=== PATIENT | female | born 1955 | race American Indian/Alaskan Native ===

== ENCOUNTER 2016-09-20 17:57 | Emergency (ER) | payer OTHER ==
[2016-09-20 21:19] LABS: Basophils % (Auto) 0.4 % (0.0-1.8); Eosinophils % (Auto) 1.5 % (0.0-4.3); Hematocrit 37.3 % (30.3-42.9); Mean Corpuscular HGB Conc 32 % (30-34); Mean Corpuscular Volume 78 fl (79-97); Platelet Count 233 K/mm3 (140-440); Red Blood Count 4.78 M/mm3 (3.65-5.03); Red Cell Distribution Width 14.1 % (13.2-15.2); White Blood Count 6.8 K/mm3 (4.5-11.0)
[2016-09-20 21:25] LABS: Mean Corpuscular Hemoglobin 25 pg (28-32)
[2016-09-20 21:32] LABS: Anion Gap 19 mmol/L; Blood Urea Nitrogen 20 mg/dL (7-17); Calcium 9.1 mg/dL (8.4-10.2); Carbon Dioxide 25 mmol/L (22-30); Glucose 205 mg/dL (65-100); Potassium 4.3 mmol/L (3.6-5.0); Sodium 141 mmol/L (137-145)
[2016-09-20 22:18] VITALS: BP 161/93
--- NOTE | 2016-09-20 23:58 | Emergency Department Report ---
ED Chest Pain HPI - General Chief Complaint: Chest Pain Stated Complaint: CHEST PAIN Time Seen by Provider: 09/20/16 19:19 Source: patient Mode of arrival: Stretcher Limitations: No Limitations - History of Present Illness Initial Comments: 61-year-old female presents to the emergency department via EMS complaining of chest pain. Patient states that at approximately 7:30 AM this morning she began having chest pain. Patient describes a squeezing sensation around her heart that lasted only for a couple of seconds for resolving. She states his pain is recurring every 15-20 minutes. She states that the intensity is increasing and the pain has begun to radiate to her left jaw and left arm. She denies associated dizziness, diaphoresis, shortness of breath, nausea, or vomiting. She does report that for the past week she has been feeling fatigued. At this time, the patient reports the pain has resolved. There are no other complaints. MD Complaint: chest pain -: Gradual, This morning Time: 07:30 Onset: during rest Pain Location: substernal Pain Radiation: LUE, jaw/teeth Severity: severe Severity scale (0 -10): 8 Quality: squeezing Consistency: intermittent, now resolved Improves With: nothing Worsens With: nothing re: denies: nausea, vomting, diaphoresis, dyspnea Treatments Prior to Arrival: none Aspirin use within the Past 7 Days: (0) No - Related Data Home Medications Medication Instructions Recorded Confirmed Last Taken Carvedilol [Coreg] 12.5 mg PO BID 05/10/15 05/10/15 Unknown Previous Rx's Medication Instructions Recorded Last Taken Type ALBUTEROL Inhaler [ProAir HFA 2 puff IH Q4H PRN #1 pump 03/05/15 Unknown Rx Inhaler] Aspirin EC [Aspirin Enteric Coated 81 mg PO QDAY #30 tablet. 03/05/15 Rx TAB] Lisinopril [Zestril TAB] 40 mg PO QDAY #30 tablet 03/05/15 05/10/15 Rx glipiZIDE [glipiZIDE ER] 5 mg PO QAM #30 tab.er.24 03/05/15 05/10/15 Rx Furosemide [Lasix] 20 mg PO BID #60 tablet 04/08/15 05/10/15 Rx Simvastatin [Zocor TAB] 20 mg PO QHS #30 tablet 04/08/15 05/10/15 Rx Hydralazine HCl [Apresoline TAB] 50 mg PO Q12H #60 tablet 05/11/15 Unknown Rx HYDROcodone/APAP 5-325 [[place] 1 each PO Q6HR PRN #15 tablet 07/27/16 Unknown Rx 5-325 mg TAB] Loperamide [Imodium] 2 mg PO Q2HR PRN #20 capsule 07/27/16 Unknown Rx Ondansetron [Zofran Odt] 4 mg PO Q8HR PRN #20 tab.rapdis 07/27/16 Unknown Rx Allergies Allergy/AdvReac Type Severity Reaction Status Date / Time latex Allergy Rash Verified 04/07/15 11:55 penicillin Allergy Unknown Verified 03/04/15 05:40 YENNI score - Yenni Score Age > 65: (0) No Aspirin use within the Past 7 Days: (0) No 3 or more CAD Risk Factors: (1) Yes 2 or more Angina events in past 24 hrs: (0) No Known CAD with more than 50% Stenosis: (0) No Elevated Cardiac Markers: (0) No ST Deviation Greater than 0.5mm: (0) No YENNI Score: 1 ED Review of Systems ROS: Stated complaint: CHEST PAIN Other details as noted in HPI Comment: All other systems reviewed and negative Cardiovascular: chest pain ED Past Medical Hx - Past Medical History Previous Medical History?: Yes Hx Hypertension: Yes Hx Congestive Heart Failure: Yes Hx Diabetes: Yes (Type II) Hx Asthma: Yes Hx COPD: Yes - Surgical History Past Surgical History?: Yes Additional Surgical History: D & C - Family History Family history: no significant - Social History Smoking Status: Never Smoker Substance Use Type: None - Medications Home Medications: Home Medications Medication Instructions Recorded Confirmed Last Taken Type ALBUTEROL Inhaler [ProAir HFA 2 puff IH Q4H PRN #1 pump 03/05/15 05/10/15 Unknown Rx Inhaler] Aspirin EC [Aspirin Enteric Coated 81 mg PO QDAY #30 tablet. 03/05/1505/10/15 Rx TAB] Lisinopril [Zestril TAB] 40 mg PO QDAY #30 tablet 03/05/15 05/10/15 05/10/15 Rx glipiZIDE [glipiZIDE ER] 5 mg PO QAM #30 tab.er.24 03/05/15 05/10/15 05/10/15 Rx Furosemide [Lasix] 20 mg PO BID #60 tablet 04/08/15 05/10/15 05/10/15 Rx Simvastatin [Zocor TAB] 20 mg PO QHS #30 tablet 04/08/15 05/10/15 05/10/15 Rx Carvedilol [Coreg] 12.5 mg PO BID 05/10/15 05/10/15 Unknown History Hydralazine HCl [Apresoline TAB] 50 mg PO Q12H #60 tablet 05/11/15 Unknown Rx HYDROcodone/APAP 5-325 [[place] 1 each PO Q6HR PRN #15 tablet 07/27/16 Unknown Rx 5-325 mg TAB] Loperamide [Imodium] 2 mg PO Q2HR PRN #20 capsule 07/27/16 Unknown Rx Ondansetron [Zofran Odt] 4 mg PO Q8HR PRN #20 tab.rapdis 07/27/16 Unknown Rx ED Physical Exam - General Limitations: No Limitations General appearance: alert, in no apparent distress - Head Head exam: Present: atraumatic, normocephalic - Eye Eye exam: Present: normal appearance, PERRL, EOMI - ENT ENT exam: Present: normal exam, normal orophraynx, mucous membranes moist - Neck Neck exam: Present: normal inspection, full ROM. Absent: tenderness - Respiratory Respiratory exam: Present: normal lung sounds bilaterally. Absent: respiratory distress - Cardiovascular Cardiovascular Exam: Present: regular rate, normal rhythm, normal heart sounds - GI/Abdominal GI/Abdominal exam: Present: soft, normal bowel sounds. Absent: distended, tenderness - Extremities Exam Extremities exam: Present: normal inspection, full ROM. Absent: tenderness - Back Exam Back exam: Present: normal inspection, full ROM. Absent: tenderness - Neurological Exam Neurological exam: Present: alert, oriented X3. Absent: motor sensory deficit - Skin Skin exam: Present: warm, dry, intact ED Course Vital Signs 09/20/16 09/20/16 09/20/16 18:16 18:22 18:30 Temperature Pulse Rate 68 69 Respiratory 14 16 20 Rate Blood Pressure 176/79 197/91 O2 Sat by Pulse 99 Oximetry 09/20/16 09/20/16 09/20/16 18:31 18:40 18:50 Temperature Pulse Rate 78 80 68 Respiratory 11 L 15 Rate Blood Pressure 197/91 179/89 O2 Sat by Pulse 98 99 Oximetry 09/20/16 09/20/16 09/20/16 18:54 19:00 19:05 Temperature 98.0 F Pulse Rate 73 63 Respiratory 18 17 18 Rate Blood Pressure 197/91 154/71 O2 Sat by Pulse 98 98 97 Oximetry 09/20/16 09/20/16 09/20/16 19:10 19:43 19:50 Temperature Pulse Rate 62 72 Respiratory 17 13 Rate Blood Pressure 154/71 154/71 167/78 O2 Sat by Pulse 99 99 Oximetry 09/20/16 09/20/16 09/20/16 20:01 20:11 20:20 Temperature Pulse Rate 63 61 Respiratory 26 H 18 27 H Rate Blood Pressure 161/65 167/78 167/78 O2 Sat by Pulse 99 99 98 Oximetry 09/20/16 09/20/16 09/20/16 20:30 20:41 20:51 Temperature Pulse Rate 59 L 61 61 Respiratory 19 21 15 Rate Blood Pressure 173/87 173/87 162/84 O2 Sat by Pulse 100 100 97 Oximetry 09/20/16 09/20/16 09/20/16 21:00 21:11 21:21 Temperature Pulse Rate 65 72 68 Respiratory 16 14 13 Rate Blood Pressure 159/95 159/95 151/95 O2 Sat by Pulse 97 98 98 Oximetry 09/20/16 09/20/16 09/20/16 21:30 21:41 21:51 Temperature Pulse Rate 59 L 69 70 Respiratory 16 11 L 11 L Rate Blood Pressure 169/86 169/86 155/80 O2 Sat by Pulse 98 98 99 Oximetry 09/20/16 09/20/16 22:00 22:11 Temperature Pulse Rate 63 66 Respiratory 12 14 Rate Blood Pressure 161/93 161/93 O2 Sat by Pulse 99 97 Oximetry ED Medical Decision Making - Lab Data Result diagrams: 09/20/16 20:16 09/20/16 20:16 - EKG Data -: EKG Interpreted by Me EKG shows normal: sinus rhythm, axis, intervals, QRS complexes, ST-T waves Rate: normal - EKG Data When compared to previous EKG there are: previous EKG unavailable Interpretation: normal EKG - Medical Decision Making Laboratory results reviewed and discussed with the patient. I have spoken with Dr. Colby, cardiology. Patient's symptoms are atypical and he states that the patient has a second negative troponin she may be discharged home. Patient has had a nonischemic ECG and 2 negative troponins. Patient will be discharged home at this time to follow up with her vegetable preparer as an outpatient. - Differential Diagnosis atypical chest pain, ACS Critical care attestation.: If time is entered above; I have spent that time in minutes in the direct care of this critically ill patient, excluding procedure time. ED Disposition Clinical Impression: Non-cardiac chest pain Disposition: DISCHARGED TO HOME OR SELFCARE Is pt being admited?: No Condition: Stable Instructions: Chest Pain (ED) Referrals: PRIMARY CARE, [Primary Care Provider] - 3-5 Days Time of Disposition: 23:58
--- NOTE | 2016-09-21 10:01 | XRay Report ---
AP CHEST: HISTORY: chest pain AP view of the chest demonstrates a normal mediastinal and cardiac contour with clear lungs and normal bony and soft tissue structures. IMPRESSION: Unremarkable AP chest.
== END 2016-09-21 00:04 | disposition home or self-care (01) ==
LOC: ED 17:57
DX: R07.89 Other chest pain (principal); I10 Essential (primary) hypertension; I50.9 Heart failure, unspecified; E11.9 Type 2 diabetes mellitus without complications; J44.9 Chronic obstructive pulmonary disease, unspecified; J45.909 Unspecified asthma, uncomplicated; Z88.0 Allergy status to penicillin; Z91.040 Latex allergy status
CPT/HCPCS: 36415; 71010; 80048; 83880; 84484; 85025; 93005; 93010; 99285

== ENCOUNTER 2016-12-12 06:10 | Day surgery (SDC) | payer OTHER ==
[2016-12-12] MEDS ORDERED: WATER FOR IRRIG STERILE IR ONE (07:03)
[2016-12-12] MEDS ORDERED: WATER FOR IRRIG STERILE ONE (07:04)
--- NOTE | 2016-12-12 07:32 | Anesthesia Consultation ---
Anesthesia Consult and Med Hx Date of service: 12/12/16 - Airway Anesthetic Teeth Evaluation: Good ROM Head & Neck: Adequate Mental/Hyoid Distance: Adequate Mallampati Class: Class II Intubation Access Assessment: Probably Good - Pulmonary Exam CTA: Yes - Cardiac Exam Cardiac Exam: RRR - Pre-Operative Health Status ASA Pre-Surgery Classification: ASA4 Proposed Anesthetic Plan: MAC - Pulmonary Hx Asthma: Yes COPD: Yes - Cardiovascular System Hx Hypertension: Yes - Gastrointestinal Hx Gastroesophageal Reflux Disease: Yes - Endocrine Hx Insulin Dependent Diabetes: Yes - Other Systems Hx Cancer: No - Additional Comments Anesthesia Medical History Comments: CHF, EF= 46%
--- NOTE | 2016-12-12 07:36 | Anesthesia Day of Surgery ---
Anesthesia Day of Surgery - Day of Surgery Patient Examined: Yes Patient H&P Reviewed: Yes Patient is NPO: Yes
[2016-12-12] MEDS ORDERED: DIPRIVAN 10 MG/ML IV ONE ×3 (07:37→07:38)
[2016-12-12] MEDS ORDERED: XYLOCAINE 1% 20 mL ONE (07:39)
[2016-12-12] MEDS ORDERED: XYLOCAINE 2% INFILTRATI ONE (07:40)
[2016-12-12] MEDS ORDERED: XYLOCAINE MPF 2% ONE (07:41)
[2016-12-12] MEDS ORDERED: NACL 0.9% 1000 ML 1,000 ML IV SCH (08:00)
[2016-12-12] MEDS ORDERED: NORMODYNE IV ONE (08:07)
--- NOTE | 2016-12-12 08:07 | Short Stay Summary ---
Short Stay Documentation - Allergies and Medications Current Medications: Allergies latex Allergy (Verified 04/07/15 11:55) Rash penicillin Allergy (Verified 03/04/15 05:40) Unknown Home Medications Medication Instructions Recorded Confirmed Last Taken Type ALBUTEROL Inhaler [ProAir HFA 2 puff IH Q4H PRN #1 pump 03/05/15 12/12/16 Unknown Rx Inhaler] Aspirin EC [Aspirin Enteric Coated 81 mg PO QDAY #30 tablet. 03/05/1512/11/16 Rx TAB] Carvedilol [Coreg] 12.5 mg PO BID 05/10/15 12/12/16 12/11/16 History HYDROcodone/APAP 5-325 [[place] 1 each PO Q6HR PRN #15 tablet 07/27/16 12/12/16 Rx 5-325 mg TAB] Loperamide [Imodium] 2 mg PO Q2HR PRN #20 capsule 07/27/16 12/12/16 Unknown Rx Ondansetron [Zofran ODT TAB] 4 mg PO Q8HR PRN #20 tab.rapdis 07/27/16 12/12/16 10/01/16 Rx Canagliflozin [Invokana] 300 mg PO QDAY 11/23/16 12/12/16 12/11/16 History Furosemide [Lasix TAB] 40 mg PO QDAY 11/23/16 12/12/16 12/11/16 History Gabapentin [Neurontin] 400 mg PO QDAY PRN 11/23/16 12/12/16 Unknown History Hydralazine HCl [Apresoline TAB] 50 mg PO TID 11/23/16 12/12/16 12/12/16 History Lisinopril [Zestril TAB] 40 mg PO QDAY 11/23/16 12/12/16 11/22/16 History Loratadine [Allergy Relief] 10 mg PO QDAY 11/23/16 12/12/16 Unknown History Simvastatin [Zocor TAB] 20 mg PO QHS 11/23/16 12/12/16 12/11/16 History amLODIPine [Norvasc] 5 mg PO DAILY 11/23/16 12/12/16 12/11/16 History glipiZIDE [glipiZIDE ER] 10 mg PO Q12HR 11/23/16 12/12/16 12/12/16 History Azithromycin [Zithromax TAB] 250 mg PO QDAY #4 tablet 11/24/16 12/12/16 Unknown Rx Fluticasone [Flonase] 1 spray NS QDAY #1 bottle 11/24/16 12/12/16 12/11/16 Rx Active Medications Sodium Chloride (Nacl 0.9% 1000 Ml) 1,000 mls @ 50 mls/hr IV DIRECT SHALA Last Admin: 12/12/16 07:41 Dose: 50 mls/hr - Brief post op/procedure progress note Date of procedure: 12/12/16 Pre-op diagnosis: 1. Colon cancer screening 2. H/o rectal prolapse Post-op diagnosis: same (1. Diverticulosis coli 2. Internal hemorrhoids) Procedure: Colonoscopy Anesthesia: MAC Findings: as above Surgeon: GERMANIA MARCUS Estimated blood loss: none Pathology: none Condition: stable - Disposition Condition at discharge: Stable Disposition: DISCHARGED TO HOME OR SELFCARE Short Stay Discharge Plan Activity: no restrictions Weight Bearing Status: Full Weight Bearing Diet: regular, low salt, diabetic Follow up with: ELE BAUTISTA III, [facility] [Primary Care Provider] - 7 Days
[2016-12-12 08:37] VITALS: BP 141/73
--- NOTE | 2016-12-12 08:47 | Post Anesthesia Evaluation ---
- Post Anesthesia Evaluation Patient Participated: Yes Airway Patent: Yes Stable Respiratory Function: Yes Nausea/Vomiting: No Temp > 96.8F: Yes Pain Manageable: Yes Adequeate Hydration: Yes Anesthesia Complications: No Block Receding Appropriately: Not Applicable Patient on Ventilator: No
== END 2016-12-12 06:11 | disposition home or self-care (01) ==
LOC: GIO 06:10
PROVIDERS: ATTEND Internal Medicine Gastroenterology
DX: Z12.11 Encounter for screening for malignant neoplasm of colon (principal); K64.0 First degree hemorrhoids; K57.30 Diverticulosis of large intestine without perforation or abscess without bleeding; K21.9 Gastro-esophageal reflux disease without esophagitis; J44.9 Chronic obstructive pulmonary disease, unspecified; J45.909 Unspecified asthma, uncomplicated; F32.9 Major depressive disorder, single episode, unspecified; E11.9 Type 2 diabetes mellitus without complications; I11.0 Hypertensive heart disease with heart failure; I50.9 Heart failure, unspecified; E78.00 Pure hypercholesterolemia, unspecified; Z88.0 Allergy status to penicillin; Z91.040 Latex allergy status; Z79.899 Other long term (current) drug therapy
CPT/HCPCS: 82962; G0121; J2704; J7030

== ENCOUNTER 2017-01-30 02:20 | Emergency (ER) | payer OTHER ==
[2017-01-30 02:43] VITALS: BP 184/111
[2017-01-30 03:19] LABS: Basophils % (Auto) 0.5 % (0.0-1.8); Eosinophils % (Auto) 2.5 % (0.0-4.3); Hematocrit 36.4 % (30.3-42.9); Hemoglobin 11.8 gm/dl (10.1-14.3); Mean Corpuscular HGB Conc 32 % (30-34); Mean Corpuscular Volume 78 fl (79-97); Platelet Count 238 K/mm3 (140-440); Red Blood Count 4.66 M/mm3 (3.65-5.03); Red Cell Distribution Width 14.2 % (13.2-15.2); White Blood Count 6.7 K/mm3 (4.5-11.0)
[2017-01-30 03:24] LABS: Mean Corpuscular Hemoglobin 25 pg (28-32)
[2017-01-30 03:40] LABS: Anion Gap 17 mmol/L; BUN/Creatinine Ratio 26.66; Blood Urea Nitrogen 24 mg/dL (7-17); Calcium 9.2 mg/dL (8.4-10.2); Carbon Dioxide 25 mmol/L (22-30); Chloride 99.1 mmol/L (98-107); Glucose 233 mg/dL (65-100); Potassium 4.1 mmol/L (3.6-5.0); Sodium 137 mmol/L (137-145)
--- NOTE | 2017-02-01 19:57 | ED Elopement Review ---
ED Pt Elopement review - Results review Lab results: Laboratory Tests 01/30/17 01/30/17 02:47 02:47 WBC 6.7 RBC 4.66 Hgb 11.8 Hct 36.4 MCV 78 L MCH 25 L MCHC 32 RDW 14.2 Plt Count 238 Lymph % (Auto) 34.5 [place] % (Auto) 7.8 H Eos % (Auto) 2.5 Baso % (Auto) 0.5 Lymph # 2.3 [place] # 0.5 Eos # 0.2 Baso # 0.0 Seg Neutrophils % 54.7 Seg Neutrophils # 3.7 Sodium 137 Potassium 4.1 Chloride 99.1 Carbon Dioxide 25 Anion Gap 17 BUN 24 H Creatinine 0.9 Estimated GFR > 60 BUN/Creatinine Ratio 26.66 Glucose 233 H Calcium 9.2 Troponin T < 0.010 - Call Back decision Pt Call Back Decision: No action required
== END 2017-01-30 05:06 | disposition left against medical advice (07) ==
LOC: ED 02:20
DX: M79.602 Pain in left arm (principal); Z53.21 Procedure and treatment not carried out due to patient leaving prior to being seen by health care provider
CPT/HCPCS: 36415; 80048; 84484; 85025; 93005; 93010

== ENCOUNTER 2017-09-01 10:57 | Emergency (ER) | payer OTHER ==
[2017-09-01 13:31] LABS: Basophils # (Auto) 0.1 K/mm3 (0.0-0.1); Basophils % (Auto) 0.9 % (0.0-1.8); Eosinophils # (Auto) 0.1 K/mm3 (0.0-0.4); Eosinophils % (Auto) 1.1 % (0.0-4.3); Hematocrit 41.1 % (30.3-42.9); Hemoglobin 13.2 gm/dl (10.1-14.3); Lymphocytes # (Auto) 2.3 K/mm3 (1.2-5.4); Lymphocytes % (Auto) 31.8 % (13.4-35.0); Mean Corpuscular HGB Conc 32 % (30-34); Mean Corpuscular Volume 80 fl (79-97); Monocytes # (Auto) 0.5 K/mm3 (0.0-0.8); Monocytes % (Auto) 6.6 % (0.0-7.3); Platelet Count 243 K/mm3 (140-440); Red Blood Count 5.15 M/mm3 (3.65-5.03); Red Cell Distribution Width 14.2 % (13.2-15.2)
[2017-09-01 13:33] LABS: Mean Corpuscular Hemoglobin 26 pg (28-32)
[2017-09-01 13:47] LABS: BUN/Creatinine Ratio 19; Blood Urea Nitrogen 15 mg/dL (7-17); Calcium 9.3 mg/dL (8.4-10.2); Hemolysis Index 12
[2017-09-01 15:49] LABS: Bilirubin,Urine NEG (Negative); Blood,Urine NEG (Negative); Color,Urine Yellow (Yellow); Mucus,Urine FEW /HPF; Nitrite,Urine NEG (Negative); Protein,Urine <15 mg/dL mg/dL (Negative); RBC,Urine < 1.0 /HPF (0.0-6.0); Urobilinogen,Urine < 2.0 mg/dL (<2.0)
--- NOTE | 2017-09-01 20:42 | Emergency Department Report ---
HPI - General Chief Complaint: Weakness Time Seen by Provider: 09/01/17 20:23 - HPI HPI: Room 22 The patient is a 62-year-old female presented with a chief complaint of feeling "sick." The patient states for the past 3 days she has felt "sick" when asked what this means the patient lives she feels "lethargic" with occasional shortness of breath. Patient states she's had a decreased appetite for the past 1.5 weeks. The patient states 5 days ago she had intermittent chest pain. Patient does admit to nausea but denies vomiting. Patient denies fever or rhinorrhea. The patient states while in the ED she had left flank pain while urinating. The patient states she had a cardiac catheterization in 2014 Location: [See above] Duration: [See above] Quality: [See above] Severity: [See above] Modifying factors: [see above] Context: [see above] Mode of transportation: [not driving] ED Past Medical Hx - Past Medical History Previous Medical History?: Yes Hx Hypertension: Yes Hx Congestive Heart Failure: Yes Hx Diabetes: Yes Hx GERD: Yes Hx Asthma: Yes Hx COPD: Yes - Surgical History Past Surgical History?: Yes Additional Surgical History: D & C - Family History Family history: no significant - Social History Smoking Status: Never Smoker Substance Use Type: None (denies illicit drug use) - Medications Home Medications: Home Medications Medication Instructions Recorded Confirmed Last Taken Type ALBUTEROL Inhaler [ProAir HFA 2 puff IH Q4H PRN #1 pump 03/05/15 12/12/16 Unknown Rx Inhaler] Aspirin EC [Aspirin Enteric Coated 81 mg PO QDAY #30 tablet. 03/05/1512/11/16 Rx TAB] Carvedilol [Coreg] 12.5 mg PO BID 05/10/15 12/12/16 12/11/16 History HYDROcodone/APAP 5-325 [[place] 1 each PO Q6HR PRN #15 tablet 07/27/16 12/12/16 Rx 5-325 mg TAB] Loperamide [Imodium] 2 mg PO Q2HR PRN #20 capsule 07/27/16 12/12/16 Unknown Rx Ondansetron [Zofran ODT TAB] 4 mg PO Q8HR PRN #20 tab.rapdis 1212/12/16 10/01/16 Rx Canagliflozin [Invokana] 300 mg PO QDAY 11/23/16 12/12/16 12/11/16 History Furosemide [Lasix TAB] 40 mg PO QDAY 11/23/16 12/12/16 12/11/16 History Gabapentin [Neurontin] 400 mg PO QDAY PRN 11/23/16 12/12/16 Unknown History Hydralazine HCl [Apresoline TAB] 50 mg PO TID 11/23/16 12/12/16 12/12/16 History Lisinopril [Zestril TAB] 40 mg PO QDAY 11/23/16 12/12/16 11/22/16 History Loratadine [Allergy Relief] 10 mg PO QDAY 11/23/16 12/12/16 Unknown History Simvastatin [Zocor TAB] 20 mg PO QHS 11/23/16 12/12/16 12/11/16 History amLODIPine [Norvasc] 5 mg PO DAILY 11/23/16 12/12/16 12/11/16 History glipiZIDE [glipiZIDE ER] 10 mg PO Q12HR 11/23/16 12/12/16 12/12/16 History Azithromycin [Zithromax TAB] 250 mg PO QDAY #4 tablet 11/24/16 12/12/16 Unknown Rx Fluticasone [Flonase] 1 spray NS QDAY #1 bottle 11/24/16 12/12/16 12/11/16 Rx Azithromycin [Zithromax Z-MARTA] 0 mg PO DAILY #6 tab 09/02/17 Unknown Rx HYDROcodone/APAP 5-325 [[place] 1 - 2 each PO Q6HR PRN #10 tablet 09/02/17 Unknown Rx 5/325] Meclizine [Antivert] 25 mg PO TID PRN #20 tablet 09/02/17 Unknown Rx ED Review of Systems ROS: Stated complaint: WEAKNESS/HYPERTENSIVE Other details as noted in HPI Constitutional: diaphoresis, weakness. denies: fever Respiratory: cough, shortness of breath Cardiovascular: chest pain Gastrointestinal: nausea. denies: vomiting Musculoskeletal: back pain Neurological: other (dizziness) Physical Exam - Physical Exam Vital Signs: Vital Signs 09/01/17 12:33 Temperature 98.3 F Pulse Rate 73 Respiratory 16 Rate Blood Pressure 178/92 O2 Sat by Pulse 98 Oximetry Physical Exam: GENERAL: The patient is well-developed well-nourished female lying on stretcher not appearing to be in acute distress. [] HEENT: Normocephalic. Atraumatic. Extraocular motions are intact. Patient has moist mucous membranes. NECK: Supple. No meningitic signs are noted. Trachea midline CHEST/LUNGS: Clear to auscultation. There is no respiratory distress noted. HEART/CARDIOVASCULAR: Regular. There is no tachycardia. There is no gallop rub or murmur. ABDOMEN: Abdomen is soft, with mild left upper quadrant discomfort to palpation. There is no rebound or guarding. Patient has normal bowel sounds. There is no abdominal distention. SKIN: There is no rash. There is no edema. There is no diaphoresis. NEURO: The patient is awake, alert, and oriented. The patient is cooperative. The patient has no focal neurologic deficits. The patient has normal speech. Cranial nerves II through XII grossly intact, no drift MUSCULOSKELETAL: There is mild left CVA tenderness. There is no evidence of acute injury. ED Course Vital Signs 09/01/17 12:33 Temperature 98.3 F Pulse Rate 73 Respiratory 16 Rate Blood Pressure 178/92 O2 Sat by Pulse 98 Oximetry ED Medical Decision Making - Lab Data Result diagrams: 09/01/17 13:03 09/01/17 13:03 Laboratory Tests 09/01/17 09/01/17 09/01/17 13:03 13:03 14:42 WBC 7.2 RBC 5.15 H Hgb 13.2 Hct 41.1 MCV 80 MCH 26 L MCHC 32 RDW 14.2 Plt Count 243 Lymph % (Auto) 31.8 [place] % (Auto) 6.6 Eos % (Auto) 1.1 Baso % (Auto) 0.9 Lymph # 2.3 [place] # 0.5 Eos # 0.1 Baso # 0.1 Seg Neutrophils % 59.6 Seg Neutrophils # 4.3 D-Dimer Sodium 138 Potassium 4.5 Chloride 98.7 Carbon Dioxide 23 Anion Gap 21 BUN 15 Creatinine 0.8 Estimated GFR > 60 BUN/Creatinine Ratio 19 Glucose 136 H Calcium 9.3 Total Creatine Kinase CK-MB (CK-2) CK-MB (CK-2) Rel Index Troponin T TSH Free T4 Urine Color Yellow Urine Turbidity Clear Urine pH 6.0 Ur Specific [place] 1.027 Urine Protein <15 mg/dl Urine Glucose (UA) >=500 Urine Ketones 20 Urine Blood Neg Urine Nitrite Neg Urine Bilirubin Neg Urine Urobilinogen < 2.0 Ur Leukocyte Esterase Neg Urine WBC (Auto) 2.0 Urine RBC (Auto) < 1.0 U Epithel Cells (Auto) 4.0 Urine Mucus Few 09/01/17 09/01/17 09/01/17 20:44 20:44 20:44 WBC RBC Hgb Hct MCV MCH MCHC RDW Plt Count Lymph % (Auto) [place] % (Auto) Eos % (Auto) Baso % (Auto) Lymph # [place] # Eos # Baso # Seg Neutrophils % Seg Neutrophils # D-Dimer 341.64 H Sodium Potassium Chloride Carbon Dioxide Anion Gap BUN Creatinine Estimated GFR BUN/Creatinine Ratio Glucose Calcium Total Creatine Kinase 101 CK-MB (CK-2) 1.3 CK-MB (CK-2) Rel Index 1.2 Troponin T < 0.010 TSH 1.750 Free T4 1.21 Urine Color Urine Turbidity Urine pH Ur Specific [place] Urine Protein Urine Glucose (UA) Urine Ketones Urine Blood Urine Nitrite Urine Bilirubin Urine Urobilinogen Ur Leukocyte Esterase Urine WBC (Auto) Urine RBC (Auto) U Epithel Cells (Auto) Urine Mucus - EKG Data -: EKG Interpreted by Ks EKG shows normal: sinus rhythm Rate: normal - EKG Data When compared to previous EKG there are: previous EKG unavailable Interpretation: other (no ischemic changes seen) - Radiology Data Radiology results: report reviewed (CT head, CT chest, CT abdomen and pelvis), image reviewed (CT head, CT chest, CT abdomen and pelvis) FINAL REPORT EXAM: CT ANGIO CHEST HISTORY: chest pain, shortness of breath COMPARISON: None available. TECHNIQUE: Contiguous axial images were obtained. Additional sagittal and coronal reformatted images were obtained. Administration of IV contrast given per institution protocol. Images submitted for interpretation. 100 cc Omnipaque 350. Max intensity projection images. FINDINGS: Heart mildly enlarged. Thoracic aorta normal in caliber. No dissection. No pulmonary embolus. No pathologically enlarged intrathoracic or axillary lymph nodes. Mild linear and subsegmental atelectasis at the lung bases. No dense consolidation or effusion. Minimal scarring at the lung apices. 7 x 6 millimeter hypodense left thyroid lobe nodule. Fatty infiltration of the liver. Mild degenerative changes of the thoracic spine. IMPRESSION: No pulmonary embolus. Mild linear and subsegmental atelectasis at the lung bases. No dense consolidation or effusion. Heart borderline mildly enlarged. Transcribed By: LMA Dictated By: EDITH MCGRATH MD Electronically Authenticated By: EDITH MCGRATH MD Signed Date/Time: 09/01/172030 DD/ 30 TD/TT: 09/01/172030 FINAL REPORT EXAM: CT HEAD/BRAIN WO CON HISTORY: dizziness COMPARISON: October 2016. TECHNIQUE: Axial images obtained skull base through vertex. FINDINGS: No acute intracranial hemorrhage, midline shift or pathologic extra axial fluid collection. Ventricles and cisterns are normal in size and configuration for the patient's age. Lynn-white differentiation preserved. Calvarium grossly intact. Ocular globes are grossly unremarkable. Mild mucosal thickening the paranasal sinuses. Mastoid air cells are clear. IMPRESSION: No grossly acute intracranial abnormality. Transcribed By: LMA Dictated By: EDITH MCGRATH MD Electronically Authenticated By: EDITH MCGRATH MD Signed Date/Time: 09/01/172010 DD/ 10 TD/TT: 09/01/172010 FINAL REPORT EXAM: CT ABDOMEN PELVIS W CON HISTORY: left upper quadrant abdominal pain COMPARISON: CT of the abdomen pelvis June 2016. TECHNIQUE: Contiguous axial images were obtained. Additional sagittal and coronal reformatted images were obtained. Administration of IV contrast given per institution protocol. Images submitted for interpretation. 100 cc Omnipaque 350. FINDINGS: Mild linear atelectasis at the lung bases. Tiny hiatal hernia. No calcified gallstones or biliary dilatation. Mild focal fatty infiltration of the liver along the falciform ligament. Spleen, pancreas, adrenal glands are grossly unremarkable. No solid renal lesion. No hydronephrosis. Aorta and IVC normal in caliber. Mild calcification of the aorta. Urinary bladder, uterus, ovaries are grossly unremarkable. No free fluid or lymphadenopathy. Large and small bowel loops normal in caliber. No focal inflammatory changes the bowel. The appendix measures 6-7 millimeters in diameter. This is upper limits of normal and is stable in size compared to prior exam.. No adjacent fat stranding or fluid. Mild diverticulosis of left colon. No diverticulitis. Bony pelvis and lumbar spine are grossly intact. IMPRESSION: No focal inflammatory changes of the abdomen and pelvis. Transcribed By: LMA Dictated By: EDITH MCGRATH MD Electronically Authenticated By: EDITH MCGRATH MD Signed Date/Time: 09/01/172054 DD/ 54 TD/TT: 09/01/172054 - Differential Diagnosis ACS, GERD, pericarditis, hypothyroidism, PE, UTI Critical care attestation.: If time is entered above; I have spent that time in minutes in the direct care of this critically ill patient, excluding procedure time. ED Disposition Clinical Impression: Fatigue, Atelectasis, Dizziness Disposition: - TO HOME OR SELFCARE Is pt being admited?: No Does the pt Need Aspirin: No Condition: Stable Instructions: Dizziness (ED) Additional Instructions: Return to the emergency department immediately should you develop worsening symptoms, fever, inability to tolerate food or liquid or any other concerns. Prescriptions: Azithromycin [Zithromax Z-MARTA] 0 mg PO DAILY #6 tab HYDROcodone/APAP 5-325 [[place] 5/325] 1 - 2 each PO Q6HR PRN #10 tablet PRN Reason: Pain Meclizine [Antivert] 25 mg PO TID PRN #20 tablet PRN Reason: Vertigo Referrals: PRIMARY CARE, [Primary Care Provider] - 3-5 Days PARAG MCCLELLAND MD [Staff Physician] - 3-5 Days (Dr. Mcclelland is a neurologist. Please follow up with him for further evaluation) Time of Disposition: 01:46
[2017-09-01] MEDS ORDERED: NORCO 5/325 PO ONE (21:15)
[2017-09-01] MEDS ORDERED: ANTIVERT PO ONE (21:15)
[2017-09-01 21:45] LABS: Creatine Kinase MB 1.3 ng/mL (0.0-4.0)
[2017-09-01 21:58] LABS: Free T4 (Free Thyroxine) 1.21 ng/dL (0.76-1.46)
[2017-09-01 22:48] VITALS: BP 156/92
--- NOTE | 2017-09-02 00:16 | Cat Scan Report ---
FINAL REPORT EXAM: CT HEAD/BRAIN WO CON HISTORY: dizziness COMPARISON: October 2016. TECHNIQUE: Axial images obtained skull base through vertex. FINDINGS: No acute intracranial hemorrhage, midline shift or pathologic extra axial fluid collection. Ventricles and cisterns are normal in size and configuration for the patient's age. Lynn-white differentiation preserved. Calvarium grossly intact. Ocular globes are grossly unremarkable. Mild mucosal thickening the paranasal sinuses. Mastoid air cells are clear. IMPRESSION: No grossly acute intracranial abnormality.
--- NOTE | 2017-09-02 00:35 | Cat Scan Report ---
FINAL REPORT EXAM: CT ANGIO CHEST HISTORY: chest pain, shortness of breath COMPARISON: None available. TECHNIQUE: Contiguous axial images were obtained. Additional sagittal and coronal reformatted images were obtained. Administration of IV contrast given per institution protocol. Images submitted for interpretation. 100 cc Omnipaque 350. Max intensity projection images. FINDINGS: Heart mildly enlarged. Thoracic aorta normal in caliber. No dissection. No pulmonary embolus. No pathologically enlarged intrathoracic or axillary lymph nodes. Mild linear and subsegmental atelectasis at the lung bases. No dense consolidation or effusion. Minimal scarring at the lung apices. 7 x 6 millimeter hypodense left thyroid lobe nodule. Fatty infiltration of the liver. Mild degenerative changes of the thoracic spine. IMPRESSION: No pulmonary embolus. Mild linear and subsegmental atelectasis at the lung bases. No dense consolidation or effusion. Heart borderline mildly enlarged.
--- NOTE | 2017-09-02 00:58 | Cat Scan Report ---
FINAL REPORT EXAM: CT ABDOMEN PELVIS W CON HISTORY: left upper quadrant abdominal pain COMPARISON: CT of the abdomen pelvis June 2016. TECHNIQUE: Contiguous axial images were obtained. Additional sagittal and coronal reformatted images were obtained. Administration of IV contrast given per institution protocol. Images submitted for interpretation. 100 cc Omnipaque 350. FINDINGS: Mild linear atelectasis at the lung bases. Tiny hiatal hernia. No calcified gallstones or biliary dilatation. Mild focal fatty infiltration of the liver along the falciform ligament. Spleen, pancreas, adrenal glands are grossly unremarkable. No solid renal lesion. No hydronephrosis. Aorta and IVC normal in caliber. Mild calcification of the aorta. Urinary bladder, uterus, ovaries are grossly unremarkable. No free fluid or lymphadenopathy. Large and small bowel loops normal in caliber. No focal inflammatory changes the bowel. The appendix measures 6-7 millimeters in diameter. This is upper limits of normal and is stable in size compared to prior exam.. No adjacent fat stranding or fluid. Mild diverticulosis of left colon. No diverticulitis. Bony pelvis and lumbar spine are grossly intact. IMPRESSION: No focal inflammatory changes of the abdomen and pelvis.
== END 2017-09-02 02:25 | disposition home or self-care (01) ==
LOC: ED 10:57
DX: J98.11 Atelectasis (principal); R42 Dizziness and giddiness; I11.0 Hypertensive heart disease with heart failure; I50.9 Heart failure, unspecified; E11.9 Type 2 diabetes mellitus without complications; K21.9 Gastro-esophageal reflux disease without esophagitis; J44.9 Chronic obstructive pulmonary disease, unspecified; Z79.82 Long term (current) use of aspirin
CPT/HCPCS: 36415; 70450; 71275; 74177; 80048; 81001; 82550; 82553; 84439; 84443; 84484; 85025; 85379; 93005; 93010; 99284; Q9967